=== PATIENT | male | born 1950 | race Caucasian/White ===

== ENCOUNTER 2018-08-12 15:14 | Emergency (ER) | payer MEDICARE, OTHER, SELFPAY ==
[2018-08-12] VITALS (11 sets, daily range): BP systolic 122–151; BP diastolic 66–103; PULSE 59–85; RESP 14–20; TEMP 36.6; O2SAT 93–97; BMI 27.5
--- NOTE | 2018-08-12 15:33 | DI.RAD.S_ITS ---
PROCEDURE: XR HAND LT MIN 3V INDICATIONS: LEFT HAND INJURY TECHNIQUE: 3 views of the hand(s) acquired. COMPARISON: None. FINDINGS: Bones: There is an ill-defined lucency noted near the base of the middle third phalanx. It is seen only on one view. Carpal bones are normally aligned. No suspicious bony lesions. Diffuse degenerative changes are present. Soft tissues: No suspicious soft tissue calcifications. IMPRESSION: Nondisplaced, ill-defined lucency seen at the base of the middle third phalanx. It is seen only on one view. Recommend correlation to point tenderness, given history of trauma, fracture cannot be definitively excluded. Otherwise, short interval imaging followup in 7-10 days is recommended for further evaluation of occult injury. Dictated by: Marycruz Mccrary M.D. on 08/12/2018 at 15:44 Approved by: Marycruz Mccrary M.D. on 08/12/2018 at 15:46
[2018-08-12 16:58] LABS: Bacteria Urine None Seen; RBC Urine None Seen (0-5/HPF); WBC Urine None Seen (0-5/HPF)
[2018-08-12 17:06] LABS: Culture Indicated Urine Cult Not Indicated; Urine Comments Microscopic Normal
--- NOTE | 2018-08-12 18:03 | ED.UPPEXIN ---
HPI - Extremity Injury (Upper) General Chief Complaint: Extremity Injury, Upper Stated Complaint: busted knuckle of left hand wrenching Time Seen by Provider: 08/12/18 18:03 Source: patient Mode of arrival: ambulatory Limitations: no limitations History of Present Illness HPI narrative: The patient is left-hand dominant. He was working at home earlier, prior to arrival. He was working under a large RV. He was pushing forward with a total in his hand that time, he slipped and slammed his left hand into the spring under the RV. He struck the item hard. He has pain in the left 3rd finger. Has no ability to move that finger. He has no bleeding, or obvious deformity. The other fingers are atraumatic. Related Data Home Medications Medication Instructions Recorded Confirmed [UNKNOWN BP MED] QDAY #0 10/21/09 Allergies Allergy/AdvReac Type Severity Reaction Status Date / Time No Known Drug Allergies Allergy Verified 08/12/18 15:29 Review of Systems Constitutional Denies weakness Comments: No other injuries or illness. Musculoskeletal Denies numbness Comments: Pain isolated to the left 3rd finger, at the MCP joint. Integumentary/Breasts Denies rash and Denies skin swelling Neurologic Denies numbness and Denies weakness PFSH Medical History No chronic problems (Acute) Surgical History No history of previous surgery (Acute) Social History Smoking Status: Never smoker Social History Smoking Status: Never smoker Exam Initial Vital Signs Initial Vital Signs: Vital Signs Temperature 97.9 F 08/12/18 15:30 Pulse Rate 70 08/12/18 15:30 Respiratory Rate 16 08/12/18 15:30 Blood Pressure 141/77 H 08/12/18 15:30 Pulse Oximetry 97 08/12/18 15:30 Const General: cooperative, healthy appearing and comfortable Orientation: alert and oriented x3 Skin General: no rashes or lesions noted Neuro General: alert, oriented x3 and no focal motor deficits Sensory Exam: no sensory deficits noted Extrem Other: the left wrist is nontender. The metacarpal bones show no deformity or tenderness. Tenderness is isolated to the middle finger MCP of the left hand. The finger is stuck in flexion at that joint. He has tenderness in the proximal phalanx, but no obvious deformity. He has normal range of motion in the PIP and the DIP joints on that finger. By exam the digit is not obviously dislocated, but the joint is stuck. He has subluxation of the joint. Procedures Orthopedic Joint Reduction Joint #1: Time Out Performed: Yes Side: left Joint Reduction Location: finger ( Third) Analgesia: procedural sedation Technique used: traction/counter-traction Post-reduction neuro exam: intact Post-reduction vascular: intact Post Reduction X-Ray Obtained: No Splint Applied: Yes Patient Tolerated Procedure: Well Orthopedic Splinting/Casting Injury #1: Side: left Upper Extremity Injury Location: hand Upper Extremity Immobilizer: volar splint Post splinting neuro exam: intact Post splinting vascular exam: intact Placed by: Nursing Procedural Sedation Patient Age: Patient is 5yrs or older Indication: fracture/dislocation reduction ASA Class: I Mallampati Airway Classification: Class I Preparation: cafeteria monitor applied, pulse oximeter, capnometry used and IV secured IV Etomidate dose (mg): 16 ED Sedation Level: Moderate (Concious) Patient Tolerated Procedure: Well Complications: none ( He recovered without incident.) Additional Comments: the left hand 3rd MCP joint was subluxed, both retraction was reduced. There is a significant click, with christianity of mobility in the joint. There is no deformity. He tolerated the procedure without incident. Course Orders Ordered: Discontinued Medications Etomidate (Amidate) 12 mg IV NOW ONE Stop: 08/12/18 18:47 Last Admin: 08/12/18 20:26 Dose: 12 mg Etomidate (Amidate) 6 mg IV NOW ONE Stop: 08/12/18 20:37 Last Admin: 08/12/18 20:36 Dose: 6 mg Sodium Chloride (Normal Saline 0.9%) 1,000 mls @ 250 mls/hr IV CONT ALDO Last Infusion: 08/12/18 21:33 Dose: 0 mls/hr Admin: 08/12/18 19:31 Dose: 250 mls/hr Vital Signs - 8 hr 08/12/18 15:30 08/12/18 18:09 08/12/18 19:15 Temperature 97.9 F Pulse Rate 70 59 L 67 Respiratory Rate 16 18 16 Blood Pressure 141/77 H Blood Pressure [Right Arm] 151/75 H 133/76 Pulse Oximetry 97 96 95 08/12/18 19:30 08/12/18 20:26 08/12/18 20:30 Temperature Pulse Rate 73 71 63 Respiratory Rate 16 20 16 Blood Pressure Blood Pressure [Right Arm] 142/72 H 146/82 H 139/103 H Pulse Oximetry 94 93 96 08/12/18 20:35 08/12/18 20:40 08/12/18 20:45 Temperature Pulse Rate 63 64 62 Respiratory Rate 17 15 14 Blood Pressure Blood Pressure [Right Arm] 134/101 H 122/77 129/70 Pulse Oximetry 96 95 94 08/12/18 20:56 Temperature Pulse Rate 85 Respiratory Rate 18 Blood Pressure Blood Pressure [Right Arm] Pulse Oximetry MDM - Extremity Injury (Upper) Lab Data Lab Results 08/12/18 Range/Units 16:56 Urine RBC None seen (0-5/HPF) Urine WBC None seen (0-5/HPF) Urine Bacteria None seen (None) Ur Culture Indicated? Cult not indicated Micro UA Comment Microscopic normal Urine Dip Bedside Urine Glucose 1000 mg/dl Bedside Urine Bilirubin - Negative Bedside Urine Ketone ++ 40 Urine Specific [place] 1.015 Bedside Urine Occult Blood - Negative Bedside Urine pH 6.0 Bedside Urine Protein - Negative Bedside Urine Urobilinogen +/- 1mg Bedside Urine Nitrite - Negative Bedside Urine Leukocytes - Negative Esterase Imaging Data Left hand x-ray:: Radiologist's impression: [place] [address] XRay Report Signed Patient: Lars Gruber CMR#: [id number] : [id number]:[id number] Age/Sex: 68 / MDate of Service: 08/12/18 Loc: ED Accession Number: [id number] Procedure: XR hand LT min 3V Ordering Provider: Lynda Pa D.O. PROCEDURE: XR HAND LT MIN 3V INDICATIONS: LEFT HAND INJURY TECHNIQUE: 3 views of the hand(s) acquired. COMPARISON: None. FINDINGS: Bones: There is an ill-defined lucency noted near the base of the middle third phalanx. It is seen only on one view. Carpal bones are normally aligned. No suspicious bony lesions. Diffuse degenerative changes are present. Soft tissues: No suspicious soft tissue calcifications. IMPRESSION: Nondisplaced, ill-defined lucency seen at the base of the middle third phalanx. It is seen only on one view. Recommend correlation to point tenderness, given history of trauma, fracture cannot be definitively excluded. Otherwise, short interval imaging followup in 7-10 days is recommended for further evaluation of occult injury. Dictated by: Marycruz Mccrary M.D. on 08/12/2018 at 15:44 Approved by: Marycruz Mccrary M.D. on 08/12/2018 at 15:46 MDM Narrative Medical decision making narrative: The patient had a left 3rd digit MCP subluxation required reduction. the x-ray raises a concern for a 3rd proximal metacarpal fracture. Back exam the patient is not tender at the same site, and there is no deformity. The subluxation was apparent clinically, but the tenderness does not align with a fracture at the same proximity. He has been referred to Orthopedics, for the subluxation injury. He will be re-evaluated for fracture at that time also. Discharge Plan Departure Patient Disposition: Home Clinical Impression: Closed dislocation of left middle finger Finger fracture, left Qualifiers: Encounter type: initial encounter Finger: middle finger Fracture type: closed Phalanx: proximal Fracture alignment: nondisplaced Qualified Code(s): S62.643A - Nondisplaced fracture of proximal phalanx of left middle finger, initial encounter for closed fracture Discharge Date/Time: 08/12/18 21:32 Interventions: ED Discharge Assessment Last Done: 08/12/18 21:34 Instructions: Finger Dislocation Activity Restrictions/Additional Instructions: keep the left hand splinted. Take Tylenol or Advil as needed for pain. By the exam you had a dislocation of the left 3rd finger. X-ray also suggests a fracture to the left finger. I am going to give you contact information for a local orthopedic surgeon, Dr. Harrell. Call for an appointment. Return here as needed. Prescriptions: No Action [UNKNOWN BP MED] QDAY Qty: 0 RF: 0 Referrals: Mello Colby MD [Primary Care Provider] - Raf Harrell MD [Physician] -
[2018-08-12] MEDS: SODIUM CHLORIDE 0.9% 1,000 ML 250 ML IV (19:31)
[2018-08-12] MEDS: ETOMIDATE 2 MG/ML VIAL 12 MG IV (20:26)
[2018-08-12] MEDS: ETOMIDATE 2 MG/ML VIAL 6 MG IV (20:36)
== END 2018-08-12 21:32 | disposition home or self-care (01) ==
PROVIDERS: Emergency Medicine; Emergency Provider Emergency Medicine; PCP Internal Medicine
DX: S62.643A Nondisplaced fracture of proximal phalanx of left middle finger, initial encounter for closed fracture (principal); W22.8XXA Striking against or struck by other objects, initial encounter
CPT/HCPCS: 26725; 73130; 81003; 81015; 94770; 96361; 96374; 99152; 99284; 99285

== ENCOUNTER 2019-04-18 08:04 | Day surgery (SDC) | payer MEDICARE, OTHER, SELFPAY ==
[2019-04-18] VITALS (7 sets, daily range): BP systolic 97–117; BP diastolic 63–74; PULSE 59–71; RESP 10–20; TEMP 36.4–36.9; O2SAT 93–98; BMI 26.2
[2019-04-18] MEDS: SODIUM CHLORIDE 0.9% 1,000 ML 42 ML IV (08:38)
--- NOTE | 2019-04-18 08:40 | PM.HP.1 ---
History of Present Illness History of Present Illness Date Patient Seen: 04/18/19 Time Patient Seen: 08:40 Chief complaint: [id number] SCREENING COLONOSCOPY Narrative: Colorectal cancer screening. Last colonoscopy 10 years ago. Patient History Medical History (Updated 04/18/19 @ 08:41 by Jose Garcia MD) No chronic problems (Acute) Surgical History (Updated 08/13/18 @ 06:42 by Todd Ceballos MD) No history of previous surgery (Acute) Family & Social History Social History: household members spouse Tobacco & Substance use: Smoking Status Never smoker alcohol intake frequency a few times a week Substance Use Type does not use Meds Home Medications and Allergies Home Medications Medication Instructions Recorded Confirmed Type Lactobacillus acidophilus 10 cell PO DAILY 04/18/19 04/18/19 History [Probiotic] Multi Complete with Iron 1 tab PO DAILY 04/18/19 04/18/19 History amlodipine 10 mg PO DAILY 04/18/19 04/18/19 History coenzyme Q10 [CoQ-10] PO 04/18/19 History lisinopril 20 mg PO DAILY 04/18/19 04/18/19 History omega 9-zbp-vwc-fish oil [Fish Oil] 2 cap PO DAILY 04/18/19 04/18/19 History rosuvastatin See Rx Instructions .ROUTE .COMPLEX 04/18/19 04/18/19 History Allergies Allergy/AdvReac Type Severity Reaction Status Date / Time No Known Drug Allergies Allergy Verified 04/18/19 08:16 Exam Vital Signs (past 8 hours): - 04/18/19 08:22 Temperature 97.8 F Pulse Rate 63 Respiratory Rate 18 Blood Pressure 117/74 Pulse Oximetry 98 Oxygen Delivery Method Room Air Narrative Exam Narrative: Oropharynx free of lesions Chest clear to auscultation percussion Cardiac exam reveals no S3 or murmur Assessment & Plan Assessment & Plan narrative: Need for colorectal cancer screening. Risks, benefits, alternatives have been explained.
--- NOTE | 2019-04-18 08:41 | PM.OP.ENDO ---
Operative Date/Time/Diagnoses Date of procedure: 04/18/19 Time of procedure: 08:41 Pre-op diagnosis: See indication and findings Procedure & Clinicians Indications: Colorectal cancer screening Surgeon: Jose Garcia Procedure Notes Procedure in detail: After informed consent was obtained patient was placed in left lateral decubitus position. The video colonoscope was introduced the rectum slowly advanced to the cecum. On slow withdrawal mucosa was carefully examined. Preparation was good. The scope was removed. The patient tolerated procedure well. Blood loss none Complications none Sedation Total sedation time 10 minutes Versed 6 mg fentanyl 100 mg IV titration Findings 1. Extensive diverticulosis in the sigmoid and left colon. Two. Otherwise negative colonoscopy to cecum. Patient should have follow-up colonoscopy 10 years.
[2019-04-18] MEDS: MIDAZOLAM 5 MG/5 ML VIAL IV (09:05)
[2019-04-18] MEDS: fentaNYL 250 MCG/5 ML INJ IV (09:05)
--- NOTE | 2019-04-18 09:10 | PM.HP.1 ---
History of Present Illness History of Present Illness Date Patient Seen: 04/18/19 Time Patient Seen: 09:10 Chief complaint: [id number] SCREENING COLONOSCOPY Narrative: Colorectal cancer screening. Last colonoscopy 10 years ago. Patient History Medical History (Updated 04/18/19 @ 08:41 by Jose Garcia MD) No chronic problems (Acute) Surgical History (Updated 08/13/18 @ 06:42 by Todd Ceballos MD) No history of previous surgery (Acute) Family & Social History Social History: household members spouse Tobacco & Substance use: Smoking Status Never smoker alcohol intake frequency a few times a week Substance Use Type does not use Meds Home Medications and Allergies Home Medications Medication Instructions Recorded Confirmed Type Multi Complete with Iron 1 tab PO DAILY 04/18/19 04/18/19 History Probiotic 10 cell PO DAILY 04/18/19 04/18/19 History amlodipine 10 mg PO DAILY 04/18/19 04/18/19 History coenzyme Q10 [CoQ-10] PO 04/18/19 History lisinopril 20 mg PO DAILY 04/18/19 04/18/19 History omega 4-enx-hbj-fish oil [Fish Oil] 2 cap PO DAILY 04/18/19 04/18/19 History rosuvastatin See Rx Instructions .ROUTE .COMPLEX 04/18/19 04/18/19 History Allergies Allergy/AdvReac Type Severity Reaction Status Date / Time No Known Drug Allergies Allergy Verified 04/18/19 08:16 Exam Vital Signs (past 8 hours): - 04/18/19 08:22 Temperature 97.8 F Pulse Rate 63 Respiratory Rate 18 Blood Pressure 117/74 Pulse Oximetry 98 Oxygen Delivery Method Room Air
--- NOTE | 2019-04-18 09:27 | SUR.PHASEI ---
Tolerating po. Denies pain.
== END 2019-04-18 09:58 | disposition home or self-care (01) ==
PROVIDERS: PCP Internal Medicine; Visit Provider Internal Medicine Gastroenterology
PROC: 0DJD8ZZ Inspection of Lower Intestinal Tract, Via Natural or Artificial Opening Endoscopic (ICD-10-PCS; CPT 45378; principal; 2019-04-18 09:00)
DX: Z12.11 Encounter for screening for malignant neoplasm of colon (principal); K57.30 Diverticulosis of large intestine without perforation or abscess without bleeding
CPT/HCPCS: G0121; J2250; J3010

== ENCOUNTER → 2019-12-18 19:30 | Outpatient (ROUT) | payer MEDICARE, OTHER, SELFPAY ==
[2019-12-18 19:57] LABS: Aspartate Aminotransferase 37 IU/L (17-59); BUN Creatinine Ratio 41.9 (6-22); Blood Urea Nitrogen 31 mg/dL (9-20); Calcium 9.5 mg/dL (8.4-10.2); Carbon Dioxide 22 mmol/L (22-32); Chloride 108 mmol/L (98-107); Cholesterol 171 mg/dL (140-199); Estimated Glomerular Filt Rate > 60.0 mL/min (>60); Glucose 90 mg/dL (80-110); HDL Cholesterol 69 mg/dL (40-60); HEMOLYSIS < 15 (0-50); LDL Cholesterol Calculated 84 mg/dL (<100); Potassium 3.7 mmol/L (3.4-5.1); Sodium 138 mmol/L (137-145); Triglycerides 89 mg/dL (35-150)
[2019-12-18 20:27] LABS: Prostate Specific Antigen 0.966 ng/mL (0.10-4.00)
== END ==
PROVIDERS: PCP Internal Medicine; Visit Provider Internal Medicine
DX: I10 Essential (primary) hypertension (principal); E78.2 Mixed hyperlipidemia; N40.1 Benign prostatic hyperplasia with lower urinary tract symptoms
CPT/HCPCS: 80048; 80061; 84153; 84450

== ENCOUNTER → 2022-01-01 15:19 | Outpatient (CLI) | payer MEDICARE, OTHER, SELFPAY ==
[2022-01-01 15:48] LABS: Hematocrit 40.1 % (41-53); Hemoglobin 14.4 g/dL (13.5-17.5); Mean Corpuscular HGB Conc 35.9 % (30-36); Mean Corpuscular Hemoglobin 34.2 PG (26-34); Mean Corpuscular Volume 95.1 fL (80-100); Platelet Count 125 X10^3/uL (150-400); Red Blood Cell Count 4.21 X10^6/uL (4.5-5.9); Red Cell Distribution Width 13.7 % (11.6-14.8); White Blood Cell Count 6.2 X10^3/uL (4.5-11.0)
[2022-01-01 15:59] LABS: Alanine Aminotransferase 29 IU/L (<50); Albumin 4.6 g/dL (3.5-5.0); Albumin Globulin Ratio 2.2 (1.0-2.8); Alkaline Phosphatase 66 U/L (38-126); Aspartate Aminotransferase 32 IU/L (17-59); BUN Creatinine Ratio 29.8 (6-22); Bilirubin Total 1.4 mg/dL (0.2-1.3); Blood Urea Nitrogen 25 mg/dL (9-20); Carbon Dioxide 25 mmol/L (22-32); Chloride 107 mmol/L (98-107); Cholesterol 149 mg/dL (140-199); Estimated Glomerular Filt Rate > 60 mL/min (>60); Globulin 2.1 g/dL (1.7-4.1); Glucose 92 mg/dL (80-110); HDL Cholesterol 62 mg/dL (40-60); HEMOLYSIS < 15 (0-50); LDL Cholesterol Calculated 66 mg/dL (<100); Potassium 3.9 mmol/L (3.4-5.1); Sodium 140 mmol/L (137-145); Total Protein 6.7 g/dL (6.3-8.2); Triglycerides 103 mg/dL (35-150)
[2022-01-01 16:30] LABS: Prostate Specific Antigen 1.12 ng/mL (0.10-4.00)
== END ==
PROVIDERS: PCP Internal Medicine; Referring Provider Internal Medicine; Visit Provider Internal Medicine
DX: E78.2 Mixed hyperlipidemia (principal); N40.0 Benign prostatic hyperplasia without lower urinary tract symptoms; I10 Essential (primary) hypertension
CPT/HCPCS: 36415; 80053; 80061; 84153; 84443; 85027

== ENCOUNTER → 2023-02-02 10:53 | Outpatient (CLI) | payer MEDICARE, OTHER, SELFPAY ==
[2023-02-02 12:01] LABS: Aspartate Aminotransferase 38 IU/L (17-59); BUN Creatinine Ratio 33.3 (6-22); Blood Urea Nitrogen 21 mg/dL (9-20); Carbon Dioxide 24 mmol/L (22-32); Chloride 106 mmol/L (98-107); Cholesterol 165 mg/dL (140-199); Estimated Glomerular Filt Rate > 60 mL/min (>60); Glucose 96 mg/dL (80-110); HDL Cholesterol 62 mg/dL (40-60); HEMOLYSIS 15 (0-50); LDL Cholesterol Calculated 89 mg/dL (<100); Potassium 4.1 mmol/L (3.4-5.1); Sodium 139 mmol/L (137-145); Triglycerides 72 mg/dL (35-150)
[2023-02-02 12:32] LABS: Prostate Specific Antigen 1.37 ng/mL (0.10-4.00)
== END ==
PROVIDERS: PCP Internal Medicine; Referring Provider Internal Medicine; Visit Provider Internal Medicine
DX: E78.2 Mixed hyperlipidemia (principal); N40.0 Benign prostatic hyperplasia without lower urinary tract symptoms; I10 Essential (primary) hypertension
CPT/HCPCS: 36415; 80048; 80061; 84153; 84450

== ENCOUNTER → 2024-02-06 14:31 | Outpatient (CLI) | payer MEDICARE, OTHER, SELFPAY ==
[2024-02-06 15:25] LABS: Aspartate Aminotransferase 33 IU/L (17-59); BUN Creatinine Ratio 29.9 (6-22); Blood Urea Nitrogen 26 mg/dL (9-20); Calcium 9.5 mg/dL (8.4-10.2); Carbon Dioxide 23 mmol/L (22-32); Chloride 109 mmol/L (98-107); Cholesterol 163 mg/dL (140-199); Estimated Glomerular Filt Rate > 60 mL/min (>60); Glucose 92 mg/dL (80-110); HDL Cholesterol 67 mg/dL (40-60); HEMOLYSIS < 15 (0-50); LDL Cholesterol Calculated 72 mg/dL (<100); Potassium 3.6 mmol/L (3.4-5.1); Sodium 140 mmol/L (137-145); Triglycerides 118 mg/dL (35-150)
[2024-02-06 15:53] LABS: Prostate Specific Antigen 1.22 ng/mL (0.10-4.00)
== END ==
PROVIDERS: PCP Internal Medicine; Referring Provider Internal Medicine; Visit Provider Internal Medicine
DX: E78.2 Mixed hyperlipidemia (principal); N40.1 Benign prostatic hyperplasia with lower urinary tract symptoms; I10 Essential (primary) hypertension; N13.8 Other obstructive and reflux uropathy
CPT/HCPCS: 36415; 80048; 80061; 84153; 84450

== ENCOUNTER → 2025-02-05 15:02 | Outpatient (CLI) | payer MEDICARE, OTHER, SELFPAY ==
[2025-02-05 16:51] LABS: Blood Urea Nitrogen 25 mg/dL (9-20); Calcium 9.3 mg/dL (8.4-10.2); Carbon Dioxide 22 mmol/L (22-32); Chloride 109 mmol/L (98-107); Cholesterol 159 mg/dL (140-199); Estimated Glomerular Filt Rate > 60 mL/min (>60); Glucose 94 mg/dL (70-99); HDL Cholesterol 78 mg/dL (40-60); HEMOLYSIS < 15 (0-50); Potassium 3.8 mmol/L (3.4-5.1); Sodium 141 mmol/L (137-145); Triglycerides 112 mg/dL (35-150)
[2025-02-05 17:22] LABS: Prostate Specific Antigen 1.39 ng/mL (0.10-4.00)
== END ==
PROVIDERS: PCP Internal Medicine; Referring Provider Internal Medicine; Visit Provider Internal Medicine
DX: I10 Essential (primary) hypertension (principal); N40.1 Benign prostatic hyperplasia with lower urinary tract symptoms; E78.2 Mixed hyperlipidemia; N13.8 Other obstructive and reflux uropathy
CPT/HCPCS: 36415; 80048; 80061; 84153; 84450

== ENCOUNTER → 2025-03-04 07:36 | Outpatient (CLI) | payer MEDICARE, OTHER, SELFPAY | LOC: CAR 07:37 | PROVIDERS: PCP Internal Medicine; Referring Provider Internal Medicine; Visit Provider Internal Medicine | DX: I48.91 Unspecified atrial fibrillation (principal); I48.92 Unspecified atrial flutter | CPT/HCPCS: 93246 ==

== ENCOUNTER → 2025-04-25 12:36 | Outpatient (CLI) | payer MEDICARE, OTHER, SELFPAY ==
--- NOTE | 2025-04-26 17:11 | DI.NM.S_ITS ---
DATE OF SERVICE: 04/25/2025 NUCLEAR CARDIOLOGY MYOCARDIAL PERFUSION STUDY PROCEDURE: Exercise treadmill stress and rest myocardial perfusion imaging with gating to assess ejection fraction and regional wall motion. ORDERING PROVIDER: Ck Miller MD. INDICATIONS: The patient is a 74-year-old male with recently discovered atrial fibrillation and mild cardiomyopathy. CARDIAC STRESS: The patient was able to exercise for a total of 3 minutes 40 seconds on a standard Braxton protocol and then exercise for an additional 1 minute 21 seconds at a modified grade and speed, suggesting moderately impaired exercise capacity with an HASMUKH of +36%. He had an accelerated heart rate response to exercise with a resting heart rate of 105 bpm increasing to 144 bpm after 1 minute of exercise and reaching a maximum of 186 bpm (127% of his predicted maximum) at peak exercise. He had a normal blood pressure response. He had moderate dyspnea but no chest discomfort. His resting ECG shows atrial fibrillation with a controlled ventricular response and normal ST segments. With stress and his accelerated heart rate, he develops 1 to 2 mm of flat to downsloping ST depression but nonspecific given the rapid rate and resolution of the ST-segment abnormalities by 1 minute of recovery and slowing of the heart rate, suggesting a rate-related artifact. He had rare PVCs but no other ectopy beyond his persistent atrial fibrillation. At 3 minutes 45 seconds of exercise at a heart rate of 176 bpm, 26.8 millicuries of technetium-99m Myoview was injected and he was imaged 15 minutes later using a gated SPECT acquisition protocol. The day prior while at rest, he had been injected with 24.9 millicuries of technetium- 99m Myoview and imaged 15 minutes later, again using a gated SPECT acquisition protocol. FINDINGS: 1. Raw data. There is fairly good myocardial tracer uptake. The lung/heart ratio is normal at 0.37 with a normal TID ratio of 0.88. 2. Quantitated gated SPECT: Post-stress ejection fraction is 52% without any focal wall motion abnormality. The resting ejection fraction is 67% although visually appears similar to that post stress ejection fraction. Resting end-diastolic volume is mildly increased at 137 mL. The right ventricle appears moderately enlarged and moderately hypokinetic with slightly increased tracer uptake which can be a sign of a right ventricular overload condition but clinical correlation is needed. 3. Myocardial perfusion imaging: Post-stress supine images show a fairly normal myocardial perfusion pattern with a very subtle defect in the inferior wall in a pattern most consistent with diaphragmatic attenuation, supported by its complete resolution on the prone images revealing a normal, uniform perfusion pattern. The resting images show a identical perfusion pattern to that of the post-stress images without any areas of improvement. IMPRESSION: 1. Normal myocardial perfusion study for ischemia. 2. Subtle, fixed mid inferior wall defect that resolves on prone imaging, consistent with diaphragmatic attenuation. There is no compelling evidence for any myocardial ischemia or previous myocardial infarction. 3. Normal left ventricular systolic function without focal wall motion abnormality. Left ventricular volumes are mildly increased. The right ventricle appears to be moderately enlarged and mildly hypokinetic, suggesting a possible right ventricular overload condition but clinical correlation is needed. 4. Moderately reduced exercise capacity without angina. While there were mild ST-segment shifts, this is likely due to his rapid atrial fibrillation with a significantly elevated heart rate at peak exercise. There are rare isolated PVCs but no complex ventricular ectopy seen. Lars Gruber - KASH/richi/SUSANA doc#: [id number]/job#: [id number] dd: 04/26/2025 16:42:00 dt: 04/26/2025 16:57:00 DICTATING MD/COPIES TO: Todd France MD; Ck Miller MD COPIES MNE: RADHA;
== END ==
PROVIDERS: PCP Internal Medicine; Referring Provider Internal Medicine; Visit Provider Internal Medicine
DX: I48.20 Chronic atrial fibrillation, unspecified (principal); I50.22 Chronic systolic (congestive) heart failure
CPT/HCPCS: 78452; 93017; A9502